=== PATIENT | female | born 1985 | race Caucasian/White ===

== ENCOUNTER 2017-08-18 15:40 | Emergency (ER) | payer MEDICAID, OTHER ==
[~2017-08-18] VITALS: Ht 160 cm; Wt 80.0 kg
[~2017-08-18 15:40] MED LIST: DOCU-144 PO; FER325 PO
[2017-08-18 15:42] VITALS: Ht 160 cm; Wt 80.0 kg
[2017-08-18] MEDS ORDERED: HYDROCODONE/APAP (5/325) TAB PO ONE ×2 (16:30→18:00)
--- NOTE | 2017-08-18 16:32 | ERD ---
ER Documentation Chief Complaint Date/Time DATE: 08/18/17 TIME: 16:28 Chief Complaint lt ankle injury , twisted on trampoline HPI This is a 32-year-old female who presents the emergency department today complaining of left ankle pain after being at [employer] and twisting her ankle while jumping on the trampoline. Denies any previous trauma. States she has not taken a medication for the pain. States she is unable to ambulate. ROS All systems reviewed and are negative except as per history of present illness. Medications Home Meds Active Scripts Naproxen* (Naprosyn*) 500 Mg Tablet, 500 MG PO BID Y for PAIN AND/OR INFLAMMATION, #30 TAB Prov:ELIANA MAYER PA-C 08/18/17 Hydrocodone/Acetaminophen (Center 5-325 Tablet) 1 Each Tablet, 1 TAB PO Q6H Y for PAIN, #12 TAB Prov:ELIANA MAYER PA-C 08/18/17 Docusate Sodium* (Colace*) 100 Mg Capsule, 100 MG PO BID, #30 CAP Prov:JASMYNE DE LA ROSA PA-C 02/14/16 Ferrous Sulfate* (Ferrous Sulfate*) 325 Mg Tabec, 325 MG PO DAILY, #30 TAB Prov:JASMYNE DE LA ROSA PA-C 02/14/16 Allergies Allergies: Coded Allergies: No Known Allergy (Unverified , 02/14/16) PMhx/Soc History of Surgery: Yes (RT OVARIAN CYST REMOVAL JUN 2015 ) Anesthesia Reaction: No Hx Neurological Disorder: No Hx Respiratory Disorders: No Hx Cardiac Disorders: No Hx Psychiatric Problems: No Hx Miscellaneous Medical Probl: Yes (R. CYST) Hx Alcohol Use: No Hx Substance Use: No Hx Tobacco Use: No Smoking Status: Never smoker Physical Exam Vitals Vital Signs Date Time Temp Pulse Resp B/P Pulse Ox O2 Delivery O2 Flow Rate FiO2 08/18/17 15:42 98.6 108 18 128/93 98 Physical Exam Const: NAD Head: Atraumatic Eyes: Normal Conjunctiva ENT: Normal External Ears, Nose and Mouth. Neck: Full range of motion..~ No meningismus. Resp: Clear to auscultation bilaterally Cardio: Regular rate and rhythm, no murmurs Abd: Soft, non tender, non distended. Normal bowel sounds Skin: No petechiae or rashes MSK: Left ankle with no obvious deformity. Moderate effusion over lateral aspect of ankle. Mild effusion over inside of left foot with mild tenderness to navicular. Mild tenderness over proximal fibula.. unable to assess range of motion secondary to pain. Pulses 2+. Distal neurovascularly intact. Neur: Awake and alert Psych: Normal Mood and Affect Results 24 hrs Current Medications Medications (Trade) Dose Ordered Sig/Ping Route PRN Reason Start Time Stop Time Status Last Admin Dose Admin Acetaminophen/ Hydrocodone Bitart (Center (5/325)) 1 tab ONCE ONCE PO 08/18/17 16:30 08/18/17 16:31 DC 08/18/17 17:03 DIAGNOSTIC IMAGING REPORT Patient: HARRIET FARAH : 1985 Age: 32 Sex: F MR #: [id number] DOS: 08/18/17 0000 Ordering MD: ELIANA MAYER PA-C Location: [facility] Room/Bed: PROCEDURE: XR Ankle. CLINICAL INDICATION: Trauma TECHNIQUE: Three views of the left ankle were performed. COMPARISON: None. FINDINGS: There is a minimally displaced avulsion fracture of the tip of the fibula. The remaining of the osseous structures are intact. The ankle mortise is preserved. Faint calcific/ossific fragments of the medial talus, which may also be related to more mild avulsion injury. Marked soft tissue swelling over the lateral malleolus. IMPRESSION: 1. Minimally displaced, avulsion fracture at the tip of the fibula. 2. Faint calcific/ossific fragment at the medial talus, which may also be related to more faint avulsion injury. RPTAT: QQ .Julio Patterson MD, MD Date Time Electronically viewed and signed by .Julio Patterson MD, MD on 08/18/2017 17:31 .d/ CC: ELIANA MAYER PA-C DIAGNOSTIC IMAGING REPORT Patient: HARRIET FARAH : 1985 Age: 32 Sex: F MR #: [id number] DOS: 08/18/17 0000 Ordering MD: ELIANA MAYER PA-C Location: [facility] Room/Bed: PROCEDURE: XR Foot. CLINICAL INDICATION: Trampoline TECHNIQUE: Three views of the left foot are available for review. COMPARISON: None available FINDINGS: There is a minimally displaced avulsion fracture of the tip of the fibula. The remaining of the osseous structures are intact. The ankle mortise is preserved. Marked soft tissue swelling over the lateral malleolus. IMPRESSION: 1. Minimally displaced, avulsion fracture at the tip of the fibula. RPTAT: QQ .Julio Patterson MD, MD Date Time Electronically viewed and signed by .Julio Patterson MD, MD on 08/18/2017 17:30 .d/ CC: ELIANA MAYER PA-C DIAGNOSTIC IMAGING REPORT Patient: HARRIET FARAH : 1985 Age: 32 Sex: F MR #: [id number] DOS: 08/18/17 0000 Ordering MD: ELIANA MAYER PA-C Location: [facility] Room/Bed: PROCEDURE: XR Tibia and Fibula. CLINICAL INDICATION: Trampoline injury TECHNIQUE: Two views of the left tibia and fibula are available for review. COMPARISON: None available FINDINGS: There is a minimally displaced avulsion fracture of the tip of the fibula. The remaining of the osseous structures are intact. The ankle mortise is preserved. Faint calcific/ossific fragments of the medial talus, which may also be related to more mild avulsion injury. Marked soft tissue swelling over the lateral malleolus. IMPRESSION: 1. Minimally displaced, avulsion fracture at the tip of the fibula. 2. Faint calcific/ossific fragment at the medial talus, which may also be related to more faint avulsion injury. RPTAT: QQ .Julio Patterson MD, MD Date Time Electronically viewed and signed by .Julio Patterson MD, MD on 08/18/2017 17:30 .d/ CC: ELIANA MAYER PA-C Procedures/MDM This is a 32-year-old female presents the emergency department today complaining of left ankle pain after sustaining an injury while jumping on a trampoline at [employer]. Patient had diffuse swelling over the lateral aspect of her ankle however she also had some pain in her foot and proximal fibula is unable to ambulate and therefore images Per the radiology report images of the left ankle, foot and tibia/fibula show minimally displaced avulsion fracture at the tip of the fibula. There is faint calcific ossific fragment in the medial talus which may also be related to morphine avulsion injury. Is at this time is consistent with distal fibula fracture. She may also have injury to the ligaments or Achilles tendon I have explained this to her. I was unable to assess patient's range of motion. I have explained that she would need further evaluation by vendor management specialist. Patient understood. Patient was given Center here in the emergency department. She will be given a prescription for short course of Center, Naprosyn for home. Patient was placed in a splint. She is distally neurovascularly intact pre-and post splint application. She was also given crutches to help ambulate. At this time the patient is stable for discharge and outpatient management. Patient should follow up with their PCP in the next 1-2 days. Given a list of resources. They may return to the emergency department sooner for any persistent or worsening of symptoms. Patient understood and agreed with the plan. Departure Diagnosis: Primary Impression: Fibula fracture Encounter type: initial encounter Fibula location: distal Fracture type: closed Fracture morphology: unspecified fracture morphology Laterality: left Qualified Code: S82.832A - Closed fracture of distal end of left fibula, unspecified fracture morphology, initial encounter Condition: Fair ELIANA MAYER-C Aug 18, 2017 16:32
--- NOTE | 2017-08-18 17:30 | RADRPT ---
PROCEDURE: XR Tibia and Fibula. CLINICAL INDICATION: Trampoline injury TECHNIQUE: Two views of the left tibia and fibula are available for review. COMPARISON: None available FINDINGS: There is a minimally displaced avulsion fracture of the tip of the fibula. The remaining of the osse ous structures are intact. The ankle mortise is preserved. Faint calcific/ossific fragments of the m edial talus, which may also be related to more mild avulsion injury. Marked soft tissue swelling ove r the lateral malleolus. IMPRESSION: 1. Minimally displaced, avulsion fracture at the tip of the fibula. 2. Faint calcific/ossific fragment at the medial talus, which may also be related to more faint avu lsion injury. RPTAT: QQ .Julio Patterson MD, MD Date Time Electronically viewed and signed by .Julio Patterson MD, MD on 08/18/2017 17:30 .d/
--- NOTE | 2017-08-18 17:31 | RADRPT ---
PROCEDURE: XR Foot. CLINICAL INDICATION: Trampoline TECHNIQUE: Three views of the left foot are available for review. COMPARISON: None available FINDINGS: There is a minimally displaced avulsion fracture of the tip of the fibula. The remaining of the osse ous structures are intact. The ankle mortise is preserved. Marked soft tissue swelling over the lat eral malleolus. IMPRESSION: 1. Minimally displaced, avulsion fracture at the tip of the fibula. RPTAT: QQ .Julio Patterson MD, MD Date Time Electronically viewed and signed by .Julio Patterson MD, MD on 08/18/2017 17:30 .d/
--- NOTE | 2017-08-18 17:31 | RADRPT ---
PROCEDURE: XR Ankle. CLINICAL INDICATION: Trauma TECHNIQUE: Three views of the left ankle were performed. COMPARISON: None. FINDINGS: There is a minimally displaced avulsion fracture of the tip of the fibula. The remaining of the osse ous structures are intact. The ankle mortise is preserved. Faint calcific/ossific fragments of the m edial talus, which may also be related to more mild avulsion injury. Marked soft tissue swelling ove r the lateral malleolus. IMPRESSION: 1. Minimally displaced, avulsion fracture at the tip of the fibula. 2. Faint calcific/ossific fragment at the medial talus, which may also be related to more faint avu lsion injury. RPTAT: QQ .Julio Patterson MD, Date Time Electronically viewed and signed by .Julio Patterson MD, MD on 08/18/2017 17:31 .d/
[2017-08-18] MEDS ORDERED: NAPR-260 PO (17:42)
[2017-08-18] MEDS ORDERED: HYDR-906 PO (17:42)
[2017-08-18 18:20] VITALS: BP 131/91; PULSE 89; RESP 16
== END 2017-08-18 18:22 | disposition home or self-care (01) ==
LOC: FTE 15:40
DX: S82.832A Other fracture of upper and lower end of left fibula, initial encounter for closed fracture (principal); W09.8XXA Fall on or from other playground equipment, initial encounter; Y92.9 Unspecified place or not applicable
CPT/HCPCS: 29515; 73590; 73610; 73630; Z7502; Z7610